=== PATIENT | male | born 1960 | race Caucasian/White ===

== ENCOUNTER 2021-09-13 10:30 | Emergency (ER) | payer OTHER ==
[2021-09-13 10:39] VITALS: TEMP 97.9; BMI 37.3
[2021-09-13] MEDS ORDERED: DIPHTH,PERTUSS(ACELL),TET 0.5 ML DISP.SYRIN IM ONE ×2 (10:58→11:04)
[2021-09-13 12:19] VITALS: BP 157/94; PULSE 79
== END 2021-09-13 11:15 | disposition home or self-care (01) ==
LOC: FER 10:30
PROC: 3E0234Z Introduction of Serum, Toxoid and Vaccine into Muscle, Percutaneous Approach (ICD-10-PCS; principal; 2021-09-13)
DX: S61.212A Laceration without foreign body of right middle finger without damage to nail, initial encounter (principal); W23.0XXA Caught, crushed, jammed, or pinched between moving objects, initial encounter
CPT/HCPCS: 90471; 90715; 99284-25

== ENCOUNTER 2023-03-08 12:03 | Observation (INO) | payer OTHER ==
[2023-03-08] MEDS ORDERED: FUROSEMIDE 40 MG/4 ML INJECTABLE VIAL IVPUSH ONE (12:36)
[2023-03-08 12:39] VITALS: BMI 40.1
[2023-03-08] MEDS ORDERED: FUROSEMIDE 40 MG/4 ML INJECTABLE VIAL ONE (12:42)
[2023-03-08 13:11] LABS: HEMATOCRIT 43.6 % (35.4-49); HEMOGLOBIN 13.6 G/dL (11.7-16.9); MCH 30.2 pg (25.7-33.7); MCHC 31.3 g/dl (32.0-35.9); MEAN CELL VOLUME 96.4 fl (80-96); MEAN PLT VOLUME 10.4 fl (7.5-11.1); PLATELET COUNT 142.2 10^3/uL (134-434); RBC 4.52 10^6/uL (4.00-5.60); RDW 15.6 % (11.9-15.9); WHITE BLOOD COUNT 9.2 10^3/uL (4.0-10.8)
[2023-03-08 13:58] LABS: ANISOCYTOSIS 1+; PLATELET ESTIMATE ADEQUATE
[2023-03-08 14:29] LABS: POTASSIUM 4.5 mmol/L (3.5-5.1)
[2023-03-08 14:31] LABS: CALCIUM 8.9 mg/dL (8.5-10.1)
[2023-03-08 14:32] LABS: ALBUMIN 3.5 g/dl (3.4-5.0); BLOOD UREA NITROGEN 16.3 mg/dL (7-18)
[2023-03-08 14:35] LABS: CREATININE 1.1 mg/dL (0.55-1.3)
[2023-03-08 14:36] LABS: TOT PROT 6.2 g/dl (6.4-8.2)
[2023-03-08 14:37] LABS: BILIRUBIN,TOTAL 0.4 mg/dL (0.2-1)
[2023-03-08] MEDS: CARVEDILOL 25 MG TABLET (FP) PO SCH (22:01)
[2023-03-09] MEDS ORDERED: METOPROLOL TARTRATE 5 MG/5 ML VIAL IVPUSH PRN (08:31)
[2023-03-09] MEDS: METOPROLOL TARTRATE 5 MG/5 ML VIAL IVPUSH PRN ×3 (08:44→19:03)
[2023-03-09] MEDS: SPIRONOLACTONE 25 MG TABLET PO SCH (09:36)
[2023-03-09] MEDS: LISINOPRIL 20 MG TABLET PO SCH (09:36)
[2023-03-09] MEDS: CARVEDILOL 25 MG TABLET (FP) PO SCH ×2 (09:36→21:31)
[2023-03-09] MEDS ORDERED: FUROSEMIDE 40 MG/4 ML INJECTABLE VIAL IVPUSH SCH (10:00)
[2023-03-09] MEDS ORDERED: FUROSEMIDE 40 MG TABLET (FP) PO SCH (10:00)
[2023-03-09 10:36] LABS: BASO % 0.6 % (0-2.0); EOS % 1.8 % (0-4.5); HEMATOCRIT 41.9 % (35.4-49); LYMPH % 14.6 % (8-40); MCH 29.4 pg (25.7-33.7); MCHC 31.1 g/dl (32.0-35.9); MEAN CELL VOLUME 94.5 fl (80-96); MEAN PLT VOLUME 10.6 fl (7.5-11.1); MONO % 9.1 % (3.8-10.2); NEUT % 73.9 % (42.8-82.8); PLATELET COUNT 143 10^3/uL (134-434); RBC 4.43 M/mm3 (4.00-5.60); RDW 15.7 % (11.9-15.9)
[2023-03-10 02:10] VITALS: RESP 18
[2023-03-10 08:26] LABS: HEMATOCRIT 45.2 % (35.4-49); HEMOGLOBIN 14.1 G/dL (11.7-16.9); MCH 29.7 pg (25.7-33.7); MCHC 31.1 g/dl (32.0-35.9); MEAN CELL VOLUME 95.5 fl (80-96); MEAN PLT VOLUME 9.7 fl (7.5-11.1); PLATELET COUNT 147.6 10^3/uL (134-434); RBC 4.73 10^6/uL (4.00-5.60); RDW 15.5 % (11.9-15.9); WHITE BLOOD COUNT 7.6 10^3/uL (4.0-10.8)
[2023-03-10] MEDS: SPIRONOLACTONE 25 MG TABLET PO SCH (09:13)
[2023-03-10] MEDS: LISINOPRIL 20 MG TABLET PO SCH (09:13)
[2023-03-10] MEDS: CARVEDILOL 25 MG TABLET (FP) PO SCH (09:13)
[2023-03-10 09:22] VITALS: TEMP 98.2
[2023-03-10 09:45] LABS: ALBUMIN 4.2 g/dl (3.4-5.0); BILIRUBIN,TOTAL 0.7 mg/dl (0.2-1); CALCIUM 9.6 mg/dl (8.5-10.1); CREATININE 1.1 mg/dl (0.6-1.3); MAGNESIUM 2.2 mg/dL (1.8-2.4); PHOSPHOROUS 3.7 (2.5-4.9); POTASSIUM 4.2 mmol/L (3.5-5.1); TOT PROT 6.3 g/dl (6.4-8.2)
[2023-03-10] MEDS ORDERED: ENOXAPARIN NA (PORCINE) 40 MG/0.4 ML DISP.SYRIN SQ SCH (10:00)
[2023-03-10] MEDS ORDERED: FUROSEMIDE 40 MG TABLET (FP) PO SCH (10:00)
[2023-03-10 14:18] VITALS: BP 135/86; PULSE 88
== END 2023-03-10 14:49 | disposition home or self-care (01) ==
LOC: FER 12:03 → FM/S 15:23 → INTOOBSV 15:23
PROVIDERS: ADMIT Internal Medicine; ATTEND Internal Medicine
PROC: 3E023GC Introduction of Other Therapeutic Substance into Muscle, Percutaneous Approach (ICD-10-PCS; principal; 2023-03-08)
PROC: 3E033GC Introduction of Other Therapeutic Substance into Peripheral Vein, Percutaneous Approach (ICD-10-PCS; 2023-03-08)
DX: I11.0 Hypertensive heart disease with heart failure (principal); I50.22 Chronic systolic (congestive) heart failure; Z68.41 Body mass index [BMI] 40.0-44.9, adult; E66.8 Other obesity
CPT/HCPCS: 0241U-QW; 36415; 71045-TC-FY; 80053; 83735; 84100; 84484; 85025; 85027; 93005; 93306-TC; 94761; 96372; 96374; 96375; 99285-25; G0378

== ENCOUNTER 2023-03-15 14:52 | Inpatient (IN) | payer OTHER ==
[2023-03-15] MEDS ORDERED: ALBUTEROL SO4 0.083% IH SOL 2.5 MG/3 ML VIAL.NEB. NEB ONE (16:08)
[2023-03-15] MEDS: ALBUTEROL SO4 0.083% IH SOL 2.5 MG/3 ML VIAL.NEB. NEB ONE (16:23)
[2023-03-15 17:06] LABS: ALBUMIN 4.3 g/dl (3.4-5.0); BILIRUBIN,TOTAL 0.4 mg/dl (0.2-1); CALCIUM 9.5 mg/dl (8.5-10.1); CREATININE 1.2 mg/dl (0.6-1.3); POTASSIUM 4.4 mmol/L (3.5-5.1); TOT PROT 6.4 g/dl (6.4-8.2)
[2023-03-15 17:19] LABS: EPITHELIAL CELLS 0-5 /hpf
[2023-03-15 17:20] LABS: URINE OTHER FEW SPERM
[2023-03-15] MEDS ORDERED: ACETAMINOPHEN INJECTION 100 ML IVPB ONE (19:18)
[2023-03-15] MEDS: ACETAMINOPHEN 1000 MG/100 ML BAG IVPB ONE (19:21)
[2023-03-15] MEDS ORDERED: dilTIAZem HCL 30 MG TABLET ONE (19:32)
[2023-03-15] MEDS: dilTIAZem HCL 60 MG TABLET PO ONE (19:40)
[2023-03-15 20:06] LABS: PLATELET ESTIMATE ADEQUATE
[2023-03-15 20:07] LABS: ANISOCYTOSIS 1+
[2023-03-15 20:13] LABS: HEMATOCRIT 48.5 % (35.4-49); HEMOGLOBIN 15.3 G/dL (11.7-16.9); MCH 30.1 pg (25.7-33.7); MCHC 31.4 g/dl (32.0-35.9); MEAN CELL VOLUME 95.8 fl (80-96); RBC 5.06 10^6/uL (4.00-5.60); WHITE BLOOD COUNT 12.5 10^3/uL (4.0-10.8)
[2023-03-15 20:14] LABS: RDW 15.4 % (11.9-15.9)
[2023-03-15 20:46] LABS: INR 1.14 (0.83-1.09); PROTHROMBIN TIME (PATIENT) 13.2 SEC (9.7-13.0)
[2023-03-15 20:49] LABS: N-TERMINAL BNP 185.4 pg/ml (5-125)
[2023-03-15 20:55] LABS: MAGNESIUM 1.9 mg/dL (1.8-2.4); PHOSPHOROUS 2.6 (2.5-4.9)
[2023-03-16] MEDS: OSELTAMIVIR PHOSPHATE 75 MG CAPSULE PO ONE (03:04)
[2023-03-16] MEDS: ACETAMINOPHEN 325 MG TABLET (FP) PO PRN (06:15)
[2023-03-16] MEDS: SPIRONOLACTONE 25 MG TABLET PO SCH (10:31)
[2023-03-16] MEDS: APIXABAN 5 MG TABLET PO SCH (10:32)
[2023-03-16] MEDS: FUROSEMIDE 40 MG TABLET (FP) PO SCH (10:32)
[2023-03-16] MEDS: CARVEDILOL 25 MG TABLET (FP) PO SCH (10:32)
[2023-03-16] MEDS: LISINOPRIL 20 MG TABLET PO SCH (10:32)
[2023-03-16 11:46] LABS: ALBUMIN 4.6 g/dl (3.4-5.0); BILIRUBIN,TOTAL 0.4 mg/dl (0.2-1); CALCIUM 9.2 mg/dl (8.5-10.1); CREATININE 1.3 mg/dl (0.6-1.3); POTASSIUM 4.5 mmol/L (3.5-5.1); TOT PROT 6.7 g/dl (6.4-8.2)
[2023-03-16 11:47] LABS: MAGNESIUM 2.3 mg/dL (1.8-2.4); PHOSPHOROUS 4.9 (2.5-4.9)
[2023-03-16] MEDS: OSELTAMIVIR PHOSPHATE 75 MG CAPSULE PO SCH (22:59)
[2023-03-16] MEDS: BENZOCAINE/MENTH/CETYLPYRD CL 1 EACH LOZENGE MM PRN (23:06)
[2023-03-16] MEDS: guaiFENesin/D-METHORPHAN HB 10 ML UNIT-DOSE CUPS PO PRN (23:06)
[2023-03-17 06:59] LABS: HEMATOCRIT 41.1 % (35.4-49); HEMOGLOBIN 12.8 GM/dL (11.7-16.9); MCH 29.7 pg (25.7-33.7); MCHC 31.1 g/dl (32.0-35.9); MEAN CELL VOLUME 95.6 fl (80-96); MEAN PLT VOLUME 10.5 fl (7.5-11.1); PLATELET COUNT 114 10^3/uL (134-434); RBC 4.29 M/mm3 (4.00-5.60); RDW 15.6 % (11.9-15.9); WHITE BLOOD COUNT 11.3 K/mm3 (4.0-10.0)
[2023-03-17 07:17] LABS: POTASSIUM 4.7 mmol/L (3.5-5.1)
[2023-03-17 07:21] LABS: CALCIUM 8.1 mg/dL (8.5-10.1)
[2023-03-17 07:22] LABS: MAGNESIUM 2.6 mg/dL (1.8-2.4)
[2023-03-17 07:24] LABS: PHOSPHOROUS 6.7 mg/dL (2.5-4.9)
[2023-03-17 18:36] LABS: ARTERIAL BLOOD GAS PO2 147.8 mmHg (80-100)
[2023-03-17 18:37] LABS: ALLENS TEST POSITIVE
[2023-03-17 18:39] LABS: ARTERIAL BLOOD GAS pH 7.125 (7.350-7.450)
[2023-03-17 19:20] LABS: BASO % 0.3 % (0-2.0); HEMATOCRIT 40.8 % (35.4-49); HEMOGLOBIN 12.9 GM/dL (11.7-16.9); LYMPH % 7.2 % (8-40); MCH 29.7 pg (25.7-33.7); MCHC 31.7 g/dl (32.0-35.9); MEAN CELL VOLUME 93.9 fl (80-96); MEAN PLT VOLUME 10.5 fl (7.5-11.1); MONO % 11.4 % (3.8-10.2); NEUT % 81.1 % (42.8-82.8); PLATELET COUNT 116 10^3/uL (134-434); RBC 4.35 M/mm3 (4.00-5.60); RDW 15.7 % (11.9-15.9); WHITE BLOOD COUNT 8.2 K/mm3 (4.0-10.0)
[2023-03-17 19:36] LABS: POTASSIUM 5.1 mmol/L (3.5-5.1)
[2023-03-17 19:39] LABS: ALBUMIN 3.6 g/dl (3.4-5.0); BLOOD UREA NITROGEN 45.4 mg/dL (7-18); MAGNESIUM 2.9 mg/dL (1.8-2.4)
[2023-03-17 19:41] LABS: PHOSPHOROUS 7.6 mg/dL (2.5-4.9)
[2023-03-17 19:43] LABS: BILIRUBIN,TOTAL 0.3 mg/dL (0.2-1); CREATININE 4.1 mg/dL (0.55-1.3); TOT PROT 6.5 g/dl (6.4-8.2)
[2023-03-17 19:46] LABS: N-TERMINAL BNP 317.1 pg/ml (5-125)
[2023-03-17 20:32] LABS: ERYTHROCYTE SEDIMENTATION RATE 8 mm/hr (0-20)
[2023-03-17 20:44] LABS: ARTERIAL BLD GAS O2 SATURATION 91.5 % (95-98); ARTERIAL BLOOD GAS BASE EXCESS -2.9 mmol/L (-2-2); ARTERIAL BLOOD GAS PO2 86.2 mmHg (80-100)
[2023-03-17 20:45] LABS: ALLENS TEST POSITIVE; VENT MODE S/T
[2023-03-17 20:46] LABS: VENT RATE 22
[2023-03-17 20:48] LABS: ARTERIAL BLOOD GAS pH 7.082 (7.350-7.450)
[2023-03-17] MEDS ORDERED: MIDAZOLAM IN 0.9 % SOD.CHLORID 1 MG/1 ML PLAST..BAG ONE (21:34)
[2023-03-17] MEDS ORDERED: ALBUTEROL SO4 0.083% IH SOL 2.5 MG/3 ML VIAL.NEB. NEB PRN (21:41)
[2023-03-17] MEDS: MIDAZOLAM HCL 2 MG/2 ML SINGLE DOSE VIAL IVPUSH ONE (21:42)
[2023-03-17] MEDS: FENTANYL NS IVPB 500 MCG/100 ML BAG IVPB SCH (21:46)
[2023-03-17] MEDS: ALBUTEROL SO4 0.083% IH SOL 2.5 MG/3 ML VIAL.NEB. NEB PRN ×2 (21:50→22:15)
[2023-03-17] MEDS: SODIUM CHLORIDE 500 ML IV STA (21:50)
[2023-03-17] MEDS: PROPOFOL 1,000,000 MCG/100 ML VIAL IVPB SCH (21:51)
[2023-03-17] MEDS: ROCURONIUM BROMIDE 50 MG/5 ML VIAL IVPUSH ONE ×2 (21:51→23:44)
[2023-03-17] MEDS: methylPREDNISolone NA SUCC 40 MG/1 ML VIAL IVPUSH SCH (22:00)
[2023-03-17] MEDS: ACETAMINOPHEN 1000 MG/100 ML BAG IVPB ONE (22:05)
[2023-03-17] MEDS: CEFTRIAXONE 1 GM in DEXTROSE 5%-WATER 100 ML IVPB SCH (22:49)
[2023-03-17] MEDS: AZITHROMYCIN IVPB 500 MG/250 ML BAG IVPB SCH (22:49)
[2023-03-17 22:53] LABS: ARTERIAL BLD GAS O2 SATURATION 93.8 % (95-98); ARTERIAL BLOOD GAS BASE EXCESS 1.6 mmol/L (-2-2); ARTERIAL BLOOD GAS PO2 83.5 mmHg (80-100); ARTERIAL BLOOD GAS pH 7.231 (7.350-7.450)
[2023-03-17 22:54] LABS: ALLENS TEST POSITIVE; VENT MODE A/C; VENT RATE 18
[2023-03-17] MEDS ORDERED: TRIPLE LUMEN FLUSH 4 ML ML IVPUSH PRN (23:00)
[2023-03-17] MEDS: OSELTAMIVIR PHOSPHATE 30 MG CAPSULE NGT SCH (23:01)
[2023-03-17] MEDS: CHLORHEXIDINE GLUCONATE 4% CLEANSER FOR DECOLONIZATION TP SCH (23:01)
[2023-03-17] MEDS: MUPIROCIN 2% TOPICAL OINTMENT FOR DECOLONIZATION NS SCH (23:01)
[2023-03-17] MEDS: APIXABAN 5 MG TABLET OG SCH (23:02)
[2023-03-17 23:11] LABS: EPI CELLS 32 /uL (0-25.1); HYALINE CASTS 15 /uL (0-3.1); URINE APPEARANCE TURBID; URINE BILIRUBIN 1+ (NEGATIVE); URINE COLOR DK YELLOW; URINE GLUCOSE (UA) NEGATIVE (NEGATIVE); URINE KETONE NEGATIVE (NEGATIVE); URINE LEUK ESTERASE NEGATIVE (NEGATIVE); URINE NITRITE NEGATIVE (NEGATIVE); URINE PROTEIN 1+ (NEGATIVE); URINE RBC 18 /uL (0-23.9)
[2023-03-17 23:12] LABS: URINE BACTERIA 7.7 /uL (0-1359); URINE WBC 56.1 /uL (0-25.8)
[2023-03-17] MEDS ORDERED: MINERAL OIL/PETROLATUM,WHITE 3.5 GM TUBE OU PRN (23:14)
[2023-03-17] MEDS ORDERED: ARTIFICIAL TEARS OPHTHALMIC DROPS OU PRN (23:14)
[2023-03-17] MEDS ORDERED: ROCURONIUM BROMIDE 50 MG/5 ML VIAL IV ONE (23:18)
[2023-03-17 23:20] LABS: METHADONE, UR NEGATIVE (NEGATIVE)
[2023-03-17 23:21] LABS: COCAINE, UR NEGATIVE (NEGATIVE); OPIATES, URI NEGATIVE (NEGATIVE); PHENCYCLIDINE,URINE NEGATIVE (NEGATIVE); URINE BARBITURATES NEGATIVE (NEGATIVE)
[2023-03-17 23:22] LABS: URINE BENZODIAZEPINES NEGATIVE (NEGATIVE)
[2023-03-17 23:23] LABS: URINE AMPHETAMINES NEGATIVE (NEGATIVE)
[2023-03-17] MEDS: NOREPINEPHRINE 0.9 % NACL 8 MG/250 ML BAG IVPB SCH (23:25)
[2023-03-17] MEDS: ROCURONIUM BROMIDE 500 MG/300 ML BAG IVPB SCH (23:44)
[2023-03-17] MEDS ORDERED: AMIODARONE IN DEXTROSE,ISO-OSM 360 MG/200 ML BAG ONE (23:54)
[2023-03-17] MEDS ORDERED: AMIODARONE IN DEXTROSE,ISO-OSM 150 MG/100 ML BAG ONE (23:54)
[2023-03-18] MEDS: AMIODARONE IN DEXTROSE,ISO-OSM 150 MG/100 ML BAG IVPB ONE (00:13)
[2023-03-18] MEDS: AMIODARONE IN DEXTROSE,ISO-OSM 360 MG/200 ML BAG IV SCH ×2 (00:16→05:55)
[2023-03-18] MEDS: VASopressin 40 UNITS/100 ML BAG IV SCH (00:16)
[2023-03-18] MEDS ORDERED: ALBUTEROL SO4 0.083% IH SOL 2.5 MG/3 ML VIAL.NEB. NEB PRN (00:23)
[2023-03-18] MEDS: ACETAMINOPHEN 1000 MG/100 ML BAG IVPB PRN (00:36)
[2023-03-18] MEDS: ALBUTEROL SO4 2.5/IPRATROPIUM 0.5 INH SOL 3 ML VIAL.NEB. NEB SCH ×2 (05:48→11:20)
[2023-03-18] MEDS: DOCUSATE NA 100 MG/10 ML UNIT-DOSE CUPS NGT SCH (05:54)
[2023-03-18] MEDS ORDERED: ALBUTEROL SO4 0.083% IH SOL 2.5 MG/3 ML VIAL.NEB. NEB SCH (06:00)
[2023-03-18 06:38] LABS: ARTERIAL BLD GAS O2 SATURATION 99.1 % (95-98); ARTERIAL BLOOD GAS BASE EXCESS -6.9 mmol/L (-2-2); ARTERIAL BLOOD GAS PO2 215.8 mmHg (80-100)
[2023-03-18 06:41] LABS: ARTERIAL BLOOD GAS pH 7.161 (7.350-7.450)
[2023-03-18 06:42] LABS: ALLENS TEST POSITIVE; VENT MODE A/C
[2023-03-18 06:43] LABS: VENT RATE 18
[2023-03-18 07:24] LABS: POTASSIUM 4.8 mmol/L (3.5-5.1)
[2023-03-18 07:26] LABS: BLOOD UREA NITROGEN 56.9 mg/dL (7-18); CALCIUM 7.4 mg/dL (8.5-10.1); MAGNESIUM 2.7 mg/dL (1.8-2.4)
[2023-03-18 07:29] LABS: CREATININE 4.5 mg/dL (0.55-1.3); PHOSPHOROUS 6.7 mg/dL (2.5-4.9)
[2023-03-18 08:43] LABS: HEMATOCRIT 40.5 % (35.4-49); HEMOGLOBIN 12.6 GM/dL (11.7-16.9); MCH 29.4 pg (25.7-33.7); MCHC 31.1 g/dl (32.0-35.9); MEAN CELL VOLUME 94.5 fl (80-96); MEAN PLT VOLUME 10.5 fl (7.5-11.1); PLATELET COUNT 112 10^3/uL (134-434); RBC 4.28 M/mm3 (4.00-5.60); WHITE BLOOD COUNT 13.8 K/mm3 (4.0-10.0)
[2023-03-18] MEDS: PANTOPRAZOLE SODIUM 40 MG VIAL IVPUSH SCH (10:45)
[2023-03-18] MEDS: APIXABAN 2.5 MG TABLET OG SCH (10:45)
[2023-03-18] MEDS: POLYETHYLENE GLYCOL (HEALTHYLAX) 3350 17 GM PACKET NGT SCH (10:46)
[2023-03-18] MEDS ORDERED: PIPERACILLIN/TAZOB 3.375 GM 3.375 GM in DEXTROSE 5%-WATER - 50 ML IVPB SCH (11:00)
[2023-03-18 11:24] LABS: ARTERIAL BLD GAS O2 SATURATION 93.4 % (95-98); ARTERIAL BLOOD GAS BASE EXCESS -3.4 mmol/L (-2-2); ARTERIAL BLOOD GAS pH 7.292 (7.350-7.450)
[2023-03-18 11:26] LABS: VENT MODE A/C; VENT RATE 22
[2023-03-18] MEDS ORDERED: INSULIN (NOVOLOG) ASPART 100 UNITS/ML 10ML VIAL ONE (11:53)
[2023-03-18] MEDS: PIPERACILLIN/TAZOB 3.375 GM 3.375 GM in DEXTROSE 5%-WATER - 50 ML IVPB SCH ×2 (11:56→18:01)
[2023-03-18] MEDS: INSULIN ASPART SLIDING SCALE (NOVOLOG) 1 VIAL SQ SCH (11:57)
[2023-03-18] MEDS: LACTATED RINGERS SOLUTION 1,000 ML/1,000 ML INFUS.BAG IV SCH (11:57)
[2023-03-18] MEDS: SENNOSIDES 8.8 MG/5 ML SYRUP NGT SCH (21:02)
[2023-03-19] MEDS: VANCOMYCIN/WATER FOR INJ (PEG) 1,000 MG/200 ML BAG IVPB ONE (01:03)
[2023-03-19] MEDS ORDERED: VASopressin 20 UNITS/ML VIAL IV ONE (02:18)
[2023-03-19] MEDS ORDERED: INSULIN (NOVOLOG) ASPART 100 UNITS/ML 10ML VIAL ONE ×2 (06:37→12:54)
[2023-03-19] MEDS: INSULIN ASPART SLIDING SCALE (NOVOLOG) 1 VIAL SQ SCH (06:39)
[2023-03-19 07:25] LABS: HEMATOCRIT 38.7 % (35.4-49); HEMOGLOBIN 12.2 GM/dL (11.7-16.9); MCH 29.4 pg (25.7-33.7); MCHC 31.6 g/dl (32.0-35.9); MEAN CELL VOLUME 93.2 fl (80-96); MEAN PLT VOLUME 10.5 fl (7.5-11.1); PLATELET COUNT 117 10^3/uL (134-434); RBC 4.15 M/mm3 (4.00-5.60); RDW 15.2 % (11.9-15.9); WHITE BLOOD COUNT 10.2 K/mm3 (4.0-10.0)
[2023-03-19 07:44] LABS: POTASSIUM 5.1 mmol/L (3.5-5.1)
[2023-03-19 07:56] LABS: MAGNESIUM 2.9 mg/dL (1.8-2.4)
[2023-03-19 07:59] LABS: CREATININE 6.6 mg/dL (0.55-1.3); PHOSPHOROUS 6.9 mg/dL (2.5-4.9)
[2023-03-19 08:00] LABS: BILIRUBIN,TOTAL 0.3 mg/dL (0.2-1); TOT PROT 5.8 g/dl (6.4-8.2)
[2023-03-19 08:09] LABS: ALBUMIN 2.7 g/dl (3.4-5.0); BLOOD UREA NITROGEN 85.4 mg/dL (7-18)
[2023-03-19] MEDS: AMIODARONE HCL 200 MG TABLET PO SCH (10:26)
[2023-03-19] MEDS: ALBUTEROL SO4 2.5/IPRATROPIUM 0.5 INH SOL 3 ML VIAL.NEB. NEB SCH (11:23)
[2023-03-19] MEDS: PIPERACILLIN/TAZOB 2.25 GM 2.25 GM in DEXTROSE 5%-WATER - 50 ML IVPB SCH (17:09)
[2023-03-20] MEDS: dilTIAZem HCL 50 MG/10 ML - 10 ML VIAL IVPUSH PRN (06:23)
[2023-03-20 07:29] LABS: HEMATOCRIT 36.8 % (35.4-49); HEMOGLOBIN 11.7 GM/dL (11.7-16.9); MCH 29.4 pg (25.7-33.7); MCHC 31.8 g/dl (32.0-35.9); MEAN CELL VOLUME 92.7 fl (80-96); MEAN PLT VOLUME 10.7 fl (7.5-11.1); PLATELET COUNT 125 10^3/uL (134-434); RBC 3.97 M/mm3 (4.00-5.60); RDW 14.9 % (11.9-15.9); WHITE BLOOD COUNT 11.4 K/mm3 (4.0-10.0)
[2023-03-20 08:57] LABS: CHLORIDE 95 mmol/L (98-107); POTASSIUM 4.9 mmol/L (3.5-5.1); SODIUM 134 mmol/L (136-145)
[2023-03-20 09:06] LABS: ALBUMIN 2.6 g/dl (3.4-5.0); ANION GAP 16 mmol/L (4-13); CALCIUM 7.7 mg/dL (8.5-10.1); CO2 23 mmol/L (21-32); GLUCOSE,RANDOM 240 mg/dL (74-106)
[2023-03-20 09:07] LABS: MAGNESIUM 3.2 mg/dL (1.8-2.4)
[2023-03-20 09:09] LABS: PHOSPHOROUS 8.2 mg/dL (2.5-4.9); SGOT/AST 21 U/L (15-37); SGPT/ALT 30 U/L (13-61)
[2023-03-20 09:11] LABS: BILIRUBIN,TOTAL 0.3 mg/dL (0.2-1); TOT PROT 5.6 g/dl (6.4-8.2)
[2023-03-20 09:12] LABS: ALK PHOS 41 U/L (45-117); BLOOD UREA NITROGEN 118.9 mg/dL (7-18); CREATININE 8.2 mg/dL (0.55-1.3)
[2023-03-20 09:55] LABS: ANISOCYTOSIS 0; HELMET CELLS 0; HOWELL-JOLLY BODIES 0; MACROCYTOSIS 0; OVALOCYTE 0; ROULEAU 0; SICKELED CELLS 0; TARGET CELLS 0; TEAR DROP CELLS 0; TOXIC GRANULATION 0
[2023-03-20] MEDS ORDERED: IPRATROPIUM BR 0.02% 0.5 MG/2.5 ML VIAL.NEB. NEB PRN (11:11)
[2023-03-20] MEDS ORDERED: ALPRAZolam 1 MG TABLET PO PRN (11:31)
[2023-03-20 12:48] VITALS: BMI 43.0
[2023-03-20 13:16] LABS: ARTERIAL BLD GAS O2 SATURATION 94.4 % (95-98); ARTERIAL BLOOD GAS BASE EXCESS -7.5 mmol/L (-2-2)
[2023-03-20] MEDS: LEVALBUTEROL HCL 0.63 MG/3 ML VIAL.NEB. IH SCH (14:45)
[2023-03-20 15:21] LABS: ARTERIAL BLD GAS O2 SATURATION 94.5 % (95-98); ARTERIAL BLOOD GAS BASE EXCESS -6.6 mmol/L (-2-2); ARTERIAL BLOOD GAS PO2 87.2 mmHg (80-100); ARTERIAL BLOOD GAS pH 7.209 (7.350-7.450)
[2023-03-20 15:23] LABS: VENT MODE S/T; VENT RATE 20
[2023-03-20] MEDS: DEXMEDETOMIDINE PREMIX 400 MCG/100 ML BAG IVPB SCH (17:02)
[2023-03-20] MEDS: LORazepam 2 MG/ML SDV VIAL IVPUSH PRN (20:27)
[2023-03-21] MEDS: NICARDIPINE 25 MG in DEXTROSE 5%-WATER - 240 ML IVPB SCH (03:26)
[2023-03-21] MEDS: LORazepam 2 MG/ML SDV VIAL IVPUSH PRN ×2 (04:20→19:57)
[2023-03-21 06:29] LABS: HEMATOCRIT 39.2 % (35.4-49); HEMOGLOBIN 12.6 GM/dL (11.7-16.9); MCH 29.8 pg (25.7-33.7); MCHC 32.1 g/dl (32.0-35.9); PLATELET COUNT 132 10^3/uL (134-434); RBC 4.21 M/mm3 (4.00-5.60); RDW 15.7 % (11.9-15.9); WHITE BLOOD COUNT 12.9 K/mm3 (4.0-10.0)
[2023-03-21 07:04] LABS: CHLORIDE 99 mmol/L (98-107); POTASSIUM 5.6 mmol/L (3.5-5.1); SODIUM 136 mmol/L (136-145)
[2023-03-21 07:06] LABS: CALCIUM 8.1 mg/dL (8.5-10.1)
[2023-03-21 07:07] LABS: ALBUMIN 2.8 g/dl (3.4-5.0); ANION GAP 13 mmol/L (4-13); CO2 25 mmol/L (21-32); GLUCOSE,RANDOM 211 mg/dL (74-106); MAGNESIUM 3.5 mg/dL (1.8-2.4)
[2023-03-21 07:10] LABS: SGOT/AST 19 U/L (15-37); SGPT/ALT 33 U/L (13-61)
[2023-03-21 07:11] LABS: BILIRUBIN,TOTAL 0.4 mg/dL (0.2-1)
[2023-03-21 07:13] LABS: ALK PHOS 43 U/L (45-117)
[2023-03-21 07:36] LABS: BLOOD UREA NITROGEN 138.7 mg/dL (7-18); PHOSPHOROUS 9.1 mg/dL (2.5-4.9)
[2023-03-21 10:08] LABS: ARTERIAL BLD GAS O2 SATURATION 92.6 % (95-98); ARTERIAL BLOOD GAS BASE EXCESS -4.7 mmol/L (-2-2); ARTERIAL BLOOD GAS PO2 70.1 mmHg (80-100); ARTERIAL BLOOD GAS pH 7.308 (7.350-7.450)
[2023-03-21 10:10] LABS: PT'S TEMP 98.6; VENT MODE S/T
[2023-03-21 10:11] LABS: VENT RATE 20
[2023-03-21] MEDS: SODIUM CHLORIDE 0.45% 1,000 ML IV SCH (11:38)
[2023-03-22] MEDS: LABETALOL HCL 5 MG/1 ML (100MG/20 ML VIAL) IVPUSH ONE (03:42)
[2023-03-22] MEDS ORDERED: niCARdipine HCL 25 MG/10 ML AMPUL IVPB ONE (03:44)
[2023-03-22 06:33] LABS: HEMATOCRIT 40.7 % (35.4-49); MCH 29.5 pg (25.7-33.7); MEAN CELL VOLUME 92.2 fl (80-96); MEAN PLT VOLUME 10.1 fl (7.5-11.1); PLATELET COUNT 153 10^3/uL (134-434); RBC 4.42 M/mm3 (4.00-5.60); RDW 15.5 % (11.9-15.9); WHITE BLOOD COUNT 10.9 K/mm3 (4.0-10.0)
[2023-03-22 06:52] LABS: CHLORIDE 102 mmol/L (98-107); POTASSIUM 5.3 mmol/L (3.5-5.1); SODIUM 139 mmol/L (136-145)
[2023-03-22 06:54] LABS: CALCIUM 8.3 mg/dL (8.5-10.1)
[2023-03-22 06:55] LABS: ANION GAP 12 mmol/L (4-13); CO2 25 mmol/L (21-32); GLUCOSE,RANDOM 219 mg/dL (74-106); MAGNESIUM 3.5 mg/dL (1.8-2.4)
[2023-03-22 06:58] LABS: CREATININE 7.3 mg/dL (0.55-1.3); PHOSPHOROUS 6.3 mg/dL (2.5-4.9)
[2023-03-22 07:32] LABS: BLOOD UREA NITROGEN 139.1 mg/dL (7-18)
[2023-03-22 10:05] LABS: ARTERIAL BLD GAS O2 SATURATION 94.7 % (95-98); ARTERIAL BLOOD GAS BASE EXCESS -5.3 mmol/L (-2-2); ARTERIAL BLOOD GAS PO2 83.1 mmHg (80-100); ARTERIAL BLOOD GAS pH 7.269 (7.350-7.450)
[2023-03-22 10:09] LABS: ALLENS TEST POSITIVE
[2023-03-22] MEDS ORDERED: INSULIN (NOVOLOG) ASPART 100 UNITS/ML 10ML VIAL ONE ×2 (12:14→16:33)
[2023-03-22] MEDS: METOPROLOL TARTRATE 5 MG/5 ML VIAL IVPUSH PRN (12:15)
[2023-03-23] MEDS: ACETAMINOPHEN 1000 MG/100 ML BAG IVPB PRN (02:50)
[2023-03-23] MEDS ORDERED: ACETAMINOPHEN INJECTION 100 ML IVPB ONE (02:54)
[2023-03-23 07:25] LABS: HEMATOCRIT 41.9 % (35.4-49); HEMOGLOBIN 13.2 GM/dL (11.7-16.9); MCH 29.3 pg (25.7-33.7); MCHC 31.5 g/dl (32.0-35.9); MEAN PLT VOLUME 9.8 fl (7.5-11.1); PLATELET COUNT 191 10^3/uL (134-434); RDW 15.4 % (11.9-15.9)
[2023-03-23 07:28] LABS: CHLORIDE 110 mmol/L (98-107); POTASSIUM 5.9 mmol/L (3.5-5.1); SODIUM 144 mmol/L (136-145)
[2023-03-23 07:31] LABS: CALCIUM 8.8 mg/dL (8.5-10.1)
[2023-03-23 07:32] LABS: ALBUMIN 2.7 g/dl (3.4-5.0); ANION GAP 8 mmol/L (4-13); CO2 26 mmol/L (21-32); GLUCOSE,RANDOM 203 mg/dL (74-106); MAGNESIUM 3.4 mg/dL (1.8-2.4)
[2023-03-23 07:35] LABS: CREATININE 5.7 mg/dL (0.55-1.3); SGOT/AST 17 U/L (15-37)
[2023-03-23 07:36] LABS: BILIRUBIN,TOTAL 0.8 mg/dL (0.2-1); SGPT/ALT 31 U/L (13-61)
[2023-03-23 07:37] LABS: ALK PHOS 41 U/L (45-117); TOT PROT 5.8 g/dl (6.4-8.2)
[2023-03-23 07:45] LABS: BLOOD UREA NITROGEN 141.7 mg/dL (7-18)
[2023-03-23 09:08] LABS: ANISOCYTOSIS 1+; MACROCYTOSIS 0; OVALOCYTE 1+
[2023-03-23] MEDS ORDERED: HEPARIN NA (PORCINE) 5,000 UNITS/ML 1ML VIAL SQ SCH (10:00)
[2023-03-23] MEDS: CEFEPIME 1 GM in DEXTROSE 5%-WATER 100 ML IVPB SCH (10:54)
[2023-03-23] MEDS: SODIUM ZIRCONIUM CYCLOSILICATE (LOKELMA) 5 GM PACKET PO SCH (11:17)
[2023-03-23] MEDS: VANCOMYCIN PREMIX 1.5 GM 1,500 MG/300 ML BAG IVPB ONE (14:43)
[2023-03-23] MEDS: DEXTROSE 5%-WATER - 1,000 ML IV SCH (16:27)
[2023-03-23] MEDS: LORazepam 2 MG/ML SDV VIAL IVPUSH PRN (20:00)
[2023-03-23] MEDS: CEFEPIME HCL 1 GM VIAL (RESTRICTED TO ID) IVPB SCH (20:53)
[2023-03-24] MEDS ORDERED: INSULIN (NOVOLOG) ASPART 100 UNITS/ML 10ML VIAL ONE (05:50)
[2023-03-24 06:46] LABS: HEMATOCRIT 40.4 % (35.4-49); HEMOGLOBIN 12.7 GM/dL (11.7-16.9); MCH 29.3 pg (25.7-33.7); MCHC 31.3 g/dl (32.0-35.9); MEAN CELL VOLUME 93.4 fl (80-96); MEAN PLT VOLUME 9.5 fl (7.5-11.1); PLATELET COUNT 215 10^3/uL (134-434); RBC 4.33 M/mm3 (4.00-5.60); WHITE BLOOD COUNT 11.7 K/mm3 (4.0-10.0)
[2023-03-24 07:14] LABS: CHLORIDE 113 mmol/L (98-107); POTASSIUM 5.7 mmol/L (3.5-5.1); SODIUM 147 mmol/L (136-145)
[2023-03-24 07:17] LABS: CALCIUM 8.4 mg/dL (8.5-10.1)
[2023-03-24 07:18] LABS: ALBUMIN 2.6 g/dl (3.4-5.0); ANION GAP 4 mmol/L (4-13); CO2 30 mmol/L (21-32); GLUCOSE,RANDOM 268 mg/dL (74-106); MAGNESIUM 2.9 mg/dL (1.8-2.4)
[2023-03-24 07:20] LABS: SGPT/ALT 35 U/L (13-61)
[2023-03-24 07:21] LABS: CREATININE 4.1 mg/dL (0.55-1.3); PHOSPHOROUS 5.6 mg/dL (2.5-4.9); SGOT/AST 12 U/L (15-37)
[2023-03-24 07:22] LABS: BILIRUBIN,TOTAL 0.5 mg/dL (0.2-1); TOT PROT 5.8 g/dl (6.4-8.2)
[2023-03-24 07:23] LABS: ALK PHOS 42 U/L (45-117)
[2023-03-24] MEDS ORDERED: DEXTROSE 50%-WATER 25 GM/50 ML DISP.SYRIN ONE (08:09)
[2023-03-24] MEDS: CALCIUM GLUCONATE 10% - 1,000 MG/10 ML VIAL IVPUSH ONE (08:11)
[2023-03-24] MEDS: INSULIN REGULAR HUMAN 100 UNITS/ML *VIAL IVPUSH ONE (08:11)
[2023-03-24] MEDS: DEXTROSE 50%-WATER - 25 GM/50 ML VIAL IVPUSH ONE (08:12)
[2023-03-24 09:20] LABS: EPI CELLS 3 /uL (0-25.1); HYALINE CASTS 0 /uL (0-3.1); URINE APPEARANCE CLEAR; URINE BACTERIA 4 /uL (0-1359); URINE BILIRUBIN NEGATIVE (NEGATIVE); URINE COLOR YELLOW; URINE GLUCOSE (UA) 1+ (NEGATIVE); URINE KETONE NEGATIVE (NEGATIVE); URINE LEUK ESTERASE NEGATIVE (NEGATIVE); URINE NITRITE NEGATIVE (NEGATIVE); URINE PROTEIN NEGATIVE (NEGATIVE); URINE RBC 36 /uL (0-23.9); URINE UROBILINOGEN 0.2 mg/dL (0.2-1.0); URINE WBC 7 /uL (0-25.8)
[2023-03-24] MEDS: DEXTROSE 5%-WATER - 1,000 ML IV SCH ×2 (11:41→17:10)
[2023-03-24] MEDS ORDERED: HEPARIN NA (PORCINE) 5,000 UNITS/ML 1ML VIAL IVPUSH PRN ×2 (13:37)
[2023-03-24 15:46] LABS: CHLORIDE 116 mmol/L (98-107); POTASSIUM 5.1 mmol/L (3.5-5.1); SODIUM 150 mmol/L (136-145)
[2023-03-24 15:49] LABS: ANION GAP 5 mmol/L (4-13); CALCIUM 8.8 mg/dL (8.5-10.1); CO2 29 mmol/L (21-32); GLUCOSE,RANDOM 282 mg/dL (74-106)
[2023-03-24 15:53] LABS: CREATININE 3.5 mg/dL (0.55-1.3)
[2023-03-24] MEDS: HEPARIN NA (PORCINE) 5,000 UNITS/ML 1ML VIAL IVPUSH ONE ×2 (15:54→20:50)
[2023-03-24] MEDS: HEPARIN - 25,000 UNIT in SODIUM CHLORIDE 495 ML IV SCH (15:54)
[2023-03-24 16:00] LABS: BLOOD UREA NITROGEN 111.1 mg/dL (7-18)
[2023-03-24] MEDS: MIDAZOLAM HCL 2 MG/2 ML SINGLE DOSE VIAL IVPUSH ONE (17:23)
[2023-03-24] MEDS: HEPARIN INFUSION - 25,000 UNITS/500 ML INFUS.BAG IVPB SCH (17:46)
[2023-03-24 20:12] LABS: ANTIGLOMERULAR BASEMENT MEN.AB <0.2 units (0.0-0.9)
[2023-03-24] MEDS: HEPARIN NA (PORCINE) 5,000 UNITS/ML 1ML VIAL IVPUSH PRN (22:00)
[2023-03-24 22:37] LABS: ALBUMIN 2.6 g/dl (3.4-5.0); ALK PHOS 43 U/L (45-117); ANION GAP 5 mmol/L (4-13); BILIRUBIN,TOTAL 0.4 mg/dL (0.2-1); BLOOD UREA NITROGEN 105.4 mg/dL (7-18); CALCIUM 8.6 mg/dL (8.5-10.1); CHLORIDE 116 mmol/L (98-107); CO2 28 mmol/L (21-32); CREATININE 3.1 mg/dL (0.55-1.3); GLUCOSE,RANDOM 310 mg/dL (74-106); POTASSIUM 5.2 mmol/L (3.5-5.1); SGOT/AST 12 U/L (15-37); SGPT/ALT 35 U/L (13-61); SODIUM 149 mmol/L (136-145); TOT PROT 5.6 g/dl (6.4-8.2)
[2023-03-25 05:26] LABS: POTASSIUM 5.6 mmol/L (3.5-5.1)
[2023-03-25 05:28] LABS: ALBUMIN 2.5 g/dl (3.4-5.0); CALCIUM 8.5 mg/dL (8.5-10.1); MAGNESIUM 2.6 mg/dL (1.8-2.4)
[2023-03-25 05:31] LABS: CREATININE 2.9 mg/dL (0.55-1.3); PHOSPHOROUS 4.4 mg/dL (2.5-4.9)
[2023-03-25 05:32] LABS: HEMATOCRIT 40.7 % (35.4-49); HEMOGLOBIN 12.9 GM/dL (11.7-16.9); MCH 29.4 pg (25.7-33.7); MCHC 31.6 g/dl (32.0-35.9); MEAN CELL VOLUME 92.9 fl (80-96); MEAN PLT VOLUME 9.7 fl (7.5-11.1); PLATELET COUNT 219 10^3/uL (134-434); RBC 4.38 M/mm3 (4.00-5.60); WHITE BLOOD COUNT 11.4 K/mm3 (4.0-10.0)
[2023-03-25 05:33] LABS: BILIRUBIN,TOTAL 0.5 mg/dL (0.2-1); TOT PROT 5.6 g/dl (6.4-8.2)
[2023-03-25] MEDS ORDERED: INSULIN (NOVOLOG) ASPART 100 UNITS/ML 10ML VIAL ONE (06:01)
[2023-03-25] MEDS: DEXTROSE 50%-WATER 25 GM/50 ML DISP.SYRIN IVPUSH ONE (06:30)
[2023-03-25] MEDS: INSULIN REGULAR HUMAN 100 UNITS/ML *VIAL IVPUSH ONE (06:30)
[2023-03-25] MEDS: DEXTROSE 50%-WATER - 25 GM/50 ML VIAL IVPUSH ONE (06:44)
[2023-03-25 10:08] LABS: ARTERIAL BLD GAS O2 SATURATION 58.1 % (95-98); ARTERIAL BLOOD GAS BASE EXCESS 1.8 mmol/L (-2-2); ARTERIAL BLOOD GAS pH 7.334 (7.350-7.450)
[2023-03-25 10:11] LABS: ALLENS TEST POSITIVE
[2023-03-25 10:12] LABS: ARTERIAL BLOOD GAS PO2 32.9 mmHg (80-100)
[2023-03-25] MEDS: AMINO ACIDS 4.25%/D5W 1,000 ML IV SCH (12:41)
[2023-03-25] MEDS ORDERED: LYTES/YERBA SANTA 60 ML SPRAY MM PRN (14:27)
[2023-03-25] MEDS: FUROSEMIDE 40 MG/4 ML INJECTABLE VIAL IVPUSH ONE (14:39)
[2023-03-25 16:16] LABS: ATYPICAL pANCA <1:20 titer (Neg:<1:20); C-ANCA <1:20 titer (Neg:<1:20)
[2023-03-25 20:37] LABS: ARTERIAL BLD GAS O2 SATURATION 91.1 % (95-98); ARTERIAL BLOOD GAS BASE EXCESS -0.5 mmol/L (-2-2); ARTERIAL BLOOD GAS PO2 58.3 mmHg (80-100); ARTERIAL BLOOD GAS pH 7.426 (7.350-7.450)
[2023-03-25 20:40] LABS: ALLENS TEST POSITIVE
[2023-03-25 22:00] LABS: ARTERIAL BLD GAS O2 SATURATION 90.4 % (95-98); ARTERIAL BLOOD GAS BASE EXCESS 2.1 mmol/L (-2-2); ARTERIAL BLOOD GAS PO2 58.8 mmHg (80-100); ARTERIAL BLOOD GAS pH 7.399 (7.350-7.450)
[2023-03-25] MEDS: INSULIN (LEVEMIR) 100 UNITS/ML UNITS SQ SCH (22:00)
[2023-03-25 22:14] LABS: ALLENS TEST POSITIVE
[2023-03-26 06:55] LABS: ARTERIAL BLD GAS O2 SATURATION 91.9 % (95-98); ARTERIAL BLOOD GAS BASE EXCESS 0.6 mmol/L (-2-2); ARTERIAL BLOOD GAS PO2 64.4 mmHg (80-100); ARTERIAL BLOOD GAS pH 7.373 (7.350-7.450)
[2023-03-26 06:57] LABS: ALLENS TEST POSITIVE
[2023-03-26 08:58] LABS: HEMATOCRIT 40.6 % (35.4-49); HEMOGLOBIN 13.3 GM/dL (11.7-16.9); MCH 29.6 pg (25.7-33.7); MCHC 32.8 g/dl (32.0-35.9); MEAN CELL VOLUME 90.4 fl (80-96); MEAN PLT VOLUME 9.7 fl (7.5-11.1); PLATELET COUNT 243 10^3/uL (134-434); RBC 4.49 M/mm3 (4.00-5.60); RDW 15.2 % (11.9-15.9); WHITE BLOOD COUNT 12.2 K/mm3 (4.0-10.0)
[2023-03-26 09:09] LABS: POTASSIUM 4.7 mmol/L (3.5-5.1)
[2023-03-26 09:11] LABS: CALCIUM 8.8 mg/dL (8.5-10.1)
[2023-03-26 09:12] LABS: ALBUMIN 2.6 g/dl (3.4-5.0); BLOOD UREA NITROGEN 83.6 mg/dL (7-18); MAGNESIUM 2.4 mg/dL (1.8-2.4)
[2023-03-26 09:14] LABS: PHOSPHOROUS 3.3 mg/dL (2.5-4.9)
[2023-03-26 09:15] LABS: CREATININE 2.4 mg/dL (0.55-1.3)
[2023-03-26 09:16] LABS: TOT PROT 5.6 g/dl (6.4-8.2)
[2023-03-26 09:27] LABS: BILIRUBIN,TOTAL 0.7 mg/dL (0.2-1)
[2023-03-26] MEDS: FUROSEMIDE 40 MG/4 ML INJECTABLE VIAL IVPUSH ONE (13:12)
[2023-03-26] MEDS: methylPREDNISolone NA SUCC 40 MG/1 ML VIAL IVPUSH SCH (18:01)
[2023-03-27 07:56] LABS: HEMATOCRIT 40.2 % (35.4-49); HEMOGLOBIN 12.6 GM/dL (11.7-16.9); MCH 29.2 pg (25.7-33.7); MCHC 31.4 g/dl (32.0-35.9); MEAN PLT VOLUME 9.4 fl (7.5-11.1); PLATELET COUNT 229 10^3/uL (134-434); RBC 4.32 M/mm3 (4.00-5.60); RDW 14.7 % (11.9-15.9); WHITE BLOOD COUNT 16.7 K/mm3 (4.0-10.0)
[2023-03-27 08:22] LABS: POTASSIUM 4.3 mmol/L (3.5-5.1)
[2023-03-27 08:31] LABS: ALBUMIN 2.5 g/dl (3.4-5.0); CALCIUM 8.2 mg/dL (8.5-10.1)
[2023-03-27 08:32] LABS: CREATININE 2.2 mg/dL (0.55-1.3); PHOSPHOROUS 4.1 mg/dL (2.5-4.9)
[2023-03-27 08:34] LABS: BILIRUBIN,TOTAL 0.9 mg/dL (0.2-1); TOT PROT 5.3 g/dl (6.4-8.2)
[2023-03-27] MEDS ORDERED: INSULIN (NOVOLOG) ASPART 100 UNITS/ML 10ML VIAL ONE (11:50)
[2023-03-27] MEDS: FUROSEMIDE 40 MG/4 ML INJECTABLE VIAL IVPUSH ONE (11:57)
[2023-03-27] MEDS ORDERED: METOPROLOL TARTRATE 5 MG/5 ML VIAL ONE (12:57)
[2023-03-27] MEDS: METOPROLOL TARTRATE 5 MG/5 ML VIAL IVPUSH ONE (13:17)
[2023-03-27] MEDS: cloNIDine-TTS 0.2 MG/24 HOURS PATCH.TDWK TD SCH (13:18)
[2023-03-27] MEDS: DEXMEDETOMIDINE PREMIX 400 MCG/100 ML BAG IVPB SCH (14:08)
[2023-03-27] MEDS ORDERED: dilTIAZem HCL 25 MG/5 ML - 5 ML VIAL ONE (14:21)
[2023-03-27] MEDS: METOPROLOL TARTRATE 25 MG TABLET (FP) PO ONE (17:12)
[2023-03-27] MEDS: methylPREDNISolone NA SUCC 40 MG/1 ML VIAL IVPUSH SCH (18:45)
[2023-03-27] MEDS: INSULIN (LEVEMIR) 100 UNITS/ML UNITS SQ SCH (22:08)
[2023-03-28 07:52] LABS: HEMATOCRIT 30.1 % (35.4-49); HEMOGLOBIN 9.6 GM/dL (11.7-16.9); MCH 29.6 pg (25.7-33.7); MCHC 31.8 g/dl (32.0-35.9); MEAN CELL VOLUME 93.2 fl (80-96); PLATELET COUNT 193 10^3/uL (134-434); RBC 3.23 M/mm3 (4.00-5.60); RDW 14.8 % (11.9-15.9)
[2023-03-28 08:18] LABS: POTASSIUM 4.4 mmol/L (3.5-5.1)
[2023-03-28 08:21] LABS: CALCIUM 7.9 mg/dL (8.5-10.1)
[2023-03-28 08:22] LABS: ALBUMIN 2.1 g/dl (3.4-5.0); BLOOD UREA NITROGEN 95.6 mg/dL (7-18); MAGNESIUM 2.1 mg/dL (1.8-2.4)
[2023-03-28] MEDS: LACTATED RINGERS SOLUTION 1000 ML INFUS.BAG IV ONE ×2 (08:24→10:08)
[2023-03-28 08:25] LABS: CREATININE 3.3 mg/dL (0.55-1.3)
[2023-03-28 08:26] LABS: BILIRUBIN,TOTAL 0.9 mg/dL (0.2-1); TOT PROT 4.4 g/dl (6.4-8.2)
[2023-03-28] MEDS: HEPARIN NA (PORCINE) 5,000 UNITS/ML 1ML VIAL IVPUSH PRN (10:33)
[2023-03-28] MEDS ORDERED: NOREPINEPHRINE BITARTRATE 4 MG/4 ML ML IV ONE (11:13)
[2023-03-28] MEDS ORDERED: fentaNYL CITRATE 250 MCG/5 ML VIAL ONE (11:20)
[2023-03-28] MEDS ORDERED: MAGNESIUM SULF 50% (8.12 MEQ/2 ML-1 GM VIAL) ONE (11:28)
[2023-03-28] MEDS ORDERED: RAPID SEQUENCE INTUBATION KIT NR ONE ×2 (11:33→11:41)
[2023-03-28] MEDS ORDERED: VANCOMYCIN/WATER FOR INJ (PEG) 1,000 MG/200 ML BAG IVPB ONE (12:35)
[2023-03-28] MEDS ORDERED: PIPERACILLIN/TAZOB 2.25 GM 2.25 GM in DEXTROSE 5%-WATER - 50 ML IVPB SCH (12:45)
[2023-03-28] MEDS ORDERED: EPINEPHrine 1:10,000 (P-F SYR) 1 MG/10 ML DISP.SYRIN ONE (13:05)
[2023-03-28 14:47] VITALS: BP 79/56; PULSE 120; RESP 21
[2023-03-28 15:13] VITALS: TEMP 100.1
== END 2023-03-28 16:03 | disposition expired | DRG 710 ==
LOC: FER 14:52 → FM/S 20:09 → J4S 03-16 22:30 → JICU 03-17 21:25
PROVIDERS: ADMIT Internal Medicine; ATTEND Internal Medicine Pulmonary Disease
PROC: 5A1955Z Respiratory Ventilation, Greater than 96 Consecutive Hours (ICD-10-PCS; 2023-03-17)
PROC: 0BH17EZ Insertion of Endotracheal Airway into Trachea, Via Natural or Artificial Opening (ICD-10-PCS; 2023-03-17)
PROC: 05H633Z Insertion of Infusion Device into Left Subclavian Vein, Percutaneous Approach (ICD-10-PCS; 2023-03-17)
PROC: B547ZZA Ultrasonography of Left Subclavian Vein, Guidance (ICD-10-PCS; 2023-03-17)
PROC: 03HY32Z Insertion of Monitoring Device into Upper Artery, Percutaneous Approach (ICD-10-PCS; principal; 2023-03-18)
PROC: 4A133B1 Monitoring of Arterial Pressure, Peripheral, Percutaneous Approach (ICD-10-PCS; 2023-03-18)
PROC: 4A133J1 Monitoring of Arterial Pulse, Peripheral, Percutaneous Approach (ICD-10-PCS; 2023-03-18)
PROC: 5A1935Z Respiratory Ventilation, Less than 24 Consecutive Hours (ICD-10-PCS; 2023-03-28)
PROC: 0BH17EZ Insertion of Endotracheal Airway into Trachea, Via Natural or Artificial Opening (ICD-10-PCS; 2023-03-28)
DX: A41.9 Sepsis, unspecified organism (principal); J69.0 Pneumonitis due to inhalation of food and vomit; J96.21 Acute and chronic respiratory failure with hypoxia; N17.0 Acute kidney failure with tubular necrosis; J96.22 Acute and chronic respiratory failure with hypercapnia; R65.21 Severe sepsis with septic shock; J10.00 Influenza due to other identified influenza virus with unspecified type of pneumonia; I48.91 Unspecified atrial fibrillation; I11.0 Hypertensive heart disease with heart failure; I50.22 Chronic systolic (congestive) heart failure; E66.01 Morbid (severe) obesity due to excess calories; Z68.41 Body mass index [BMI] 40.0-44.9, adult; D69.6 Thrombocytopenia, unspecified; E87.5 Hyperkalemia; E87.0 Hyperosmolality and hypernatremia; G47.33 Obstructive sleep apnea (adult) (pediatric); J98.01 Acute bronchospasm; R73.9 Hyperglycemia, unspecified
CPT/HCPCS: 0241U-QW; 31500; 36415; 36600; 70450-TC; 71045-TC-FY; 71046-TC-FY; 71275-TC; 76775-TC; 80048; 80053; 80061; 80307; 81003; 81015; 82272; 82436; 82550; 82553; 82570; 82803; 82962; 83036; 83516; 83520; 83735; 83880; 84100; 84133; 84155; 84156; 84165; 84300; 84484; 84540; 85025; 85027; 85610; 85651; 85730; 86038; 86225; 86256; 87040; 87070; 87086; 87205; 87899; 93005; 93010; 94002; 94640; 94660; 97116-GP; 97161-GP; 99285-25; G0480; J0131; J0282; J1644; J3490; Q9967